=== PATIENT | male | born 1985 | race Caucasian/White ===

== ENCOUNTER 2019-08-18 13:59 | Observation (INO) | payer BC, OTHER ==
[2019-08-18 15:10] LABS: Absolute Lymphocytes (CBC) 0.7 K/uL (0.7-4.9); Basophils % 0.9 % (0-1.3); Lymphocytes % 20.7 % (15.3-44.8); MPV 6.5 fL (7.6-11.3); RBC Red Blood Cell Count 4.42 M/uL (4.33-5.43)
[2019-08-18] MEDS ORDERED: NA CHLORIDE 0.9% 1,000 ML ONE ×2 (15:13→17:57)
[2019-08-18 15:24] LABS: Protime INR 0.88
[2019-08-18 15:31] LABS: ALT/SGPT 96 U/L (12-78); AST/SGOT 111 U/L (15-37); Albumin 3.6 g/dL (3.4-5.0); Alkaline Phosphatase 97 U/L (45-117); BUN Blood Urea Nitrogen 9 mg/dL (7-18); Bicarbonate 29 mmol/L (21-32); Bilirubin Direct 0.1 mg/dL (0-0.2); Bilirubin Total 0.2 mg/dL (0.2-1.0); Glucose Level 113 mg/dL (74-106); Potassium 3.7 mmol/L (3.5-5.1); Protein, Total 7.2 g/dL (6.4-8.2); Sodium Level 141 mmol/L (136-145)
[2019-08-18] MEDS ORDERED: MIDAZOLAM HCL 2 MG/2 ML INJ ONE (15:32)
[2019-08-18] MEDS ORDERED: KETAMINE HCL 500 MG/5 ML VIAL ONE (15:51)
--- NOTE | 2019-08-18 16:52 | EDPHYS ---
Physician Documentation [facility] Name: Alonzo Hernandez Age: 34 yrs Sex: Male : 1985 Arrival Date: 08/18/2019 Time: 14:06 Bed 3 Private MD: ED Physician Mikey Palacios HPI: 08/17 19:16 This 34 yrs old Male presents to ER via EMS with complaints of Syncope, kdr Alcohol Abuse. 19:17 The patient presents with agitation, confusion, decreased mental status, decreased kdr responsiveness. Onset: The symptoms/episode began/occurred at an unknown time. Possible causes: drug use, alcohol, head injury. Associated signs and symptoms: Pertinent positives: combativeness, confusion. Current symptoms: In the emergency department the patient's symptoms are unchanged from the initial presentation. Patient's baseline: Neuro: alert and fully oriented, Motor: no deficits, Ambulation: walks without assistance, Speech: normal. EMS reports that the patient was found unresponsive in the front yard of his parents home. Historical: - Allergies: 14:00 Unable to obtain; rb1 - Home Meds: 14:00 Unable to obtain [Active]; rb1 - PMHx: 14:00 Unable to obtain; rb1 - PSHx: 14:00 Unable to obtain; rb1 - Immunization history:: Adult Immunizations unknown. ROS: 19:17 Constitutional: Unable to obstain as the patient is intermnittnetly unresponsive and kdr appears to be intoxicatead 19:17 Unable to obtain ROS due to altered mental status, obtunded state. Exam: 19:17 Constitutional: This is a well developed, well nourished patient who is awake, alert, kdr and in no acute distress. Head/Face: Normocephalic, atraumatic. Eyes: Pupils equal round and reactive to light, extra-ocular motions intact. Lids and lashes normal. Conjunctiva and sclera are non-icteric and not injected. Cornea within normal limits. Periorbital areas with no swelling, redness, or edema. Neck: Trachea midline, no thyromegaly or masses palpated, and no cervical lymphadenopathy. Supple, full range of motion without nuchal rigidity, or vertebral point tenderness. No Meningismus. Chest/axilla: Normal chest wall appearance and motion. Nontender with no deformity. No lesions are appreciated. Cardiovascular: Regular rate and rhythm with a normal S1 and S2. No gallops, murmurs, or rubs. Normal PMI, no JVD. No pulse deficits. Respiratory: Lungs have equal breath sounds bilaterally, clear to auscultation and percussion. No rales, rhonchi or wheezes noted. No increased work of breathing, no retractions or nasal flaring. Abdomen/GI: Soft, non-tender, with normal bowel sounds. No distension or tympany. No guarding or rebound. No evidence of tenderness throughout. Back: No spinal tenderness. No costovertebral tenderness. Full range of motion. Skin: Warm, dry with normal turgor. Normal color with no rashes, no lesions, and no evidence of cellulitis. MS/ Extremity: Pulses equal, no cyanosis. Neurovascular intact. Full, normal range of motion. 19:17 Neuro: Orientation: unable to test, The patient is unresponsive intermittently. When he wakes, he is agitated and uncooperative. Vital Signs: 14:00 BP 137 / 89; Pulse 108; Resp 14; Temp 98.5(TE); Pulse Ox 95% on 2 lpm NC; rb1 15:01 BP 129 / 82; Pulse 97; Resp 13; Pulse Ox 93% ; bp 16:00 BP 158 / 113; Pulse 117; Resp 15; Pulse Ox 96% ; bp 17:00 BP 161 / 112; Pulse 116; Resp 17; Pulse Ox 92% on 2 lpm NC; rb1 18:00 BP 168 / 116; Pulse 114; Resp 13; Pulse Ox 94% on 2 lpm NC; rb1 14:00 Nasal trumpet was inserted by EMS rb1 17:00 Pt. keeps fighting the O2 rb1 MDM: 16:51 Patient medically screened. kdr 19:17 Data reviewed: vital signs, nurses notes, lab test result(s), radiologic studies. kdr Counseling: I had a detailed discussion with the patient and/or guardian regarding: the historical points, exam findings, and any diagnostic results supporting the discharge/admit diagnosis, lab results, radiology results, the need for further work-up and treatment in the hospital. 08/17 14:56 Order name: Acetaminophen; Complete Time: 16:37 kdr 08/17 14:56 Order name: Basic Metabolic Panel; Complete Time: 16:37 kdr 08/17 14:56 Order name: CBC with Diff; Complete Time: 16:37 kdr 08/17 14:56 Order name: ETOH Level; Complete Time: 16:37 kdr 08/17 14:56 Order name: Hepatic Function; Complete Time: 16:37 kdr 08/17 14:56 Order name: PT-INR; Complete Time: 16:37 kdr 08/17 14:56 Order name: Ptt, Activated; Complete Time: 16:37 kdr 08/17 14:56 Order name: Salicylate; Complete Time: 16:37 kdr 08/17 14:56 Order name: Urine Drug Screen; Complete Time: 19:22 kdr 08/17 16:51 Order name: CT Head Brain wo Cont kdr 08/17 18:01 Order name: Urine Dipstick--Ancillary (enter results) em1 08/18 05:53 Order name: CBC with Automated Diff EDMS 08/18 06:26 Order name: Lactate EDMS 08/18 06:26 Order name: Alcohol Serum/Plasma EDMS 08/17 14:56 Order name: EKG; Complete Time: 14:57 [facility] 08/17 14:56 Order name: EKG - Nurse/Tech; Complete Time: 15:03 kdr 08/17 14:56 Order name: IV Saline Lock; Complete Time: 14:58 kdr 08/17 14:56 Order name: Labs collected and sent; Complete Time: 14:58 [facility] 08/17 14:56 Order name: Urine Dipstick-Ancillary (obtain specimen); Complete Time: 17:57 [facility] 08/17 15:31 Order name: Restraint:Violent/Self Destructive (Adult:18yo or >); Complete Time: 15:31 bp 04 17:13 Order name: Social Service Consult EDMS 08/17 17:35 Order name: CT; Complete Time: 19:22 EDMS Administered Medications: 15:02 Drug: NS 0.9% 1000 ml Route: IV; Rate: 1 bolus; Site: right forearm; bp 15:15 Drug: Versed 4 mg Route: IVP; Site: right forearm; bp 15:45 Drug: Ketamine 50 mg Route: IM; Site: left vastus lateralis; bp 15:50 Drug: Ketamine 100 mg Route: IM; Site: left vastus lateralis; bp 16:30 Drug: Ketamine 150 mg Route: IM; Site: right vastus lateralis; bp 16:30 Drug: Ketamine 150 mg Route: IM; Site: left vastus lateralis; bp 16:55 CANCELLED (Duplicate Order): Ketamine 3 mg/kg IM once; Total of 150 mg IM bp Disposition: 08/18/19 16:51 Hospitalization ordered by Finn Shaikh for Inpatient Admission. Preliminary diagnosis is Alcohol Intoxidation. - Bed requested for [facility] ER HOLD. - Status is Inpatient Admission. ph - Condition is Serious. - Problem is an acute exacerbation. - Symptoms are unchanged. Signatures: Dispatcher [employer] EDMS Mikey Palacios MD MD [facility] Radha Wiggins RN RN aa5 Merna Payne RN RN ph Isabel Talavera, RN RN rb1 Derick Mariee RN RN bp Corrections: (The following items were deleted from the chart) 16:55 16:52 Ketamine 3 mg/kg IM once; Total of 150 mg IM ordered. kdr bp 19:11 16:51 Hospitalization Ordered by Finn Shaikh DO for Inpatient Admission. Preliminary aa5 diagnosis is Alcohol Intoxidation. Bed requested for Intensive Care Unit. Status is Inpatient Admission. Condition is Serious. Problem is an acute exacerbation. Symptoms are unchanged. kdr 08/18 07:19 [id number] 19:11 08/18/2019 16:51 Hospitalization Ordered by Finn Shaikh DO for Inpatient ph Admission. Preliminary diagnosis is Alcohol Intoxidation. Bed requested for [facility] ER HOLD. Status is Inpatient Admission. Condition is Serious. Problem is an acute exacerbation. Symptoms are unchanged. aa5
--- NOTE | 2019-08-18 16:52 | ER ---
Nurse's Notes [facility] Name: Alonzo Hernandez Age: 34 yrs Sex: Male : 1985 Arrival Date: 08/18/2019 Time: 14:06 Bed 3 Private MD: Diagnosis: Alcohol Intoxidation Presentation: 08/17 14:00 Chief complaint: EMS states: Pt is 34 yr. old, Neighbors called and reported that the rb1 pt was passed out in his yard. Family reports that the pt. abuses alcohol. When EMS arrived the pt. walked with them to the ambulance and became uncooperative and combative. They administered Versed 5 mg IM x once. HR 130's and BP 170/110. Pt. denies using drugs and admits to drinking alcohol but the amount is unknown. No medical history per family report. Coronavirus screen: Proceed with normal triage. Initial Sepsis Screen: Does the patient meet any 2 criteria? No. Patient's initial sepsis screen is negative. Does the patient have a suspected source of infection? No. Patient's initial sepsis screen is negative. Risk Assessment: Do you want to hurt yourself or someone else? Unable to obtain. Onset of symptoms is unknown. 14:00 Method Of Arrival: EMS: [facility] rb1 14:00 Acuity: NAYLA 3 rb1 Triage Assessment: 14:00 General: Appears in no apparent distress. Behavior is drowsy, Received Versed 5 mg IM x rb1 once by EMS in route to the hospital. Pain: Unable to use pain scale. Drowsy from the Versed. Neuro: Level of Consciousness is lethargic. Cardiovascular: Capillary refill < 3 seconds. Respiratory: Airway via nasal trumpet Respiratory effort is even, unlabored, Respiratory pattern is regular, symmetrical. Derm: Skin is pink, warm \T\ dry. Historical: - Allergies: 14:00 Unable to obtain; rb1 - Home Meds: 14:00 Unable to obtain [Active]; rb1 - PMHx: 14:00 Unable to obtain; rb1 - PSHx: 14:00 Unable to obtain; rb1 - Immunization history:: Adult Immunizations unknown. Screenin:00 Abuse screen: Denies threats or abuse. Nutritional screening: No deficits noted. rb1 Tuberculosis screening: No symptoms or risk factors identified. Fall Risk Fall in past 12 months (25 points). No secondary diagnosis (0 pts). No IV (0 pts). Ambulatory Aid- None/Bed Rest/Nurse Assist (0 pts). Gait- Normal/Bed Rest/Wheelchair (0 pts) Mental Status- Overestimates/Forgets Limitations (15 pts.). Assessment: 14:00 General: Appears in no apparent distress. comfortable, unkempt. General: Behavior is bp drowsy, uncooperative, Smells of alcohol. Pain: Unable to use pain scale. Does not appear to understand pain scale. Neuro: Level of Consciousness is lethargic, Oriented to none. Cardiovascular: Rhythm is sinus tachycardia. Respiratory: No deficits noted. GI: No signs and/or symptoms were reported involving the gastrointestinal system. : No signs and/or symptoms were reported regarding the genitourinary system. EENT: No deficits noted. Derm: No deficits noted. Musculoskeletal: No deficits noted. 15:00 Reassessment: PT REMAINS DISORIENTED AND UNCOOPERATIVE WHEN STIMULATED, LETHARGIC WHEN bp LEFT TO REST. ST ON MONITOR. 15:15 Reassessment: PT UNCOOPERATIVE AND COMBATIVE, ATTEMPTING TO D/C MONITORING, FIGHTING TO bp REMOVE RESTRAINTS. 16:13 Reassessment: LUZMA ROBERTSON CALLED. PT D/C RESTRAINTS, MONITOR AND PIV. ATTENDING AND STAFF bp AT B/S, PT PLACED BACK IN BED, RESTRAINTS RE-APPLIED. PT NOT ABLE TO VERBALIZE RESTRAINT RELEASE CRITERIA, CONTINUES TO BE UNCOOPERATIVE AND COMBATIVE. 18:00 Reassessment: PT SEEN BY DR RODRIGUEZ. PT REMAINS UNCOOPERATIVE AND COMBATIVE. bp Vital Signs: 14:00 BP 137 / 89; Pulse 108; Resp 14; Temp 98.5(TE); Pulse Ox 95% on 2 lpm NC; rb1 15:01 BP 129 / 82; Pulse 97; Resp 13; Pulse Ox 93% ; bp 16:00 BP 158 / 113; Pulse 117; Resp 15; Pulse Ox 96% ; bp 17:00 BP 161 / 112; Pulse 116; Resp 17; Pulse Ox 92% on 2 lpm NC; rb1 18:00 BP 168 / 116; Pulse 114; Resp 13; Pulse Ox 94% on 2 lpm NC; rb1 14:00 Nasal trumpet was inserted by EMS rb1 17:00 Pt. keeps fighting the O2 rb1 ED Course: 14:00 Arm band placed on right wrist. rb1 14:00 Patient has correct armband on for positive identification. Bed in low position. Call rb1 light in reach. Side rails up X 1. hall monitor on. Pulse ox on. NIBP on. Warm blanket given. 14:00 Maintain EMS IV. Dressing intact. Good blood return noted. Site clean \T\ dry. Gauge \T\ bp site: 20 GAUGE R FA. 14:06 Patient arrived in ED. em1 14:19 Triage completed. rb1 14:21 Derick Mariee, VIKAS is Primary Nurse. bp 14:45 Mikey Palacios MD is Attending Physician. kdr 14:59 Initial lab(s) drawn, by me, sent to lab. mh5 15:02 Acetaminophen Sent. mh5 15:02 Basic Metabolic Panel Sent. mh5 15:03 CBC with Diff Sent. mh5 15:03 ETOH Level Sent. mh5 15:03 Hepatic Function Sent. mh5 15:03 PT-INR Sent. mh5 15:03 Ptt, Activated Sent. mh5 15:03 Salicylate Sent. mh5 15:24 EKG done, by ED staff, reviewed by Mikey Palacios MD. mh5 16:47 Missed attempt(s): 18 gauge in right antecubital area. mh5 16:49 Finn Rodriguez DO is Hospitalizing Provider. kdr 17:17 Inserted saline lock: 20 gauge in left forearm, using aseptic technique. mh5 17:56 Urine collected: straight cath specimen, clear. Straight cath inserted, using sterile mh5 technique, 16 Fr. Returned clear yellow urine. Patient tolerated well. 17:57 Urine Drug Screen Sent. mh5 19:11 No provider procedures requiring assistance completed. Patient admitted, IV remains in bp place. Restraints: 14:00 Violent/Self Destructive Restraint: Order: obtained. Initiated August 18, 2019 at 14:00 bp Staff present during the Initiation of Restraint: DINORA PCT, PETER PCT, WAYNE LOWRY, RHONDA RN, KAVITA RN. Family Notification/Education: Unable to provide education: PT CONFUSED. Observed actions/behavior: destructive, violent, severely aggressive, confusion/disorientation, difficulty remembering or follow instructions, impaired decision making, repeated attempts to get up from bed/chair without assistance. decreased Level of Consciousness (LOC), unable to follow instructions, rptd attempts to remove/tamper lines/tubes/IV/med devices \T\ wnd dressing, Less restrictive alternatives attempted: decreased environmental stimuli, 1:1 patient care, placed near Nurse station, reoriented to location, medications evaluated, medicated for pain/anxiety, Alternative interventions: Ineffective. Clinical justification for use: Violent/self destructing behavior impacts therapeutic environment. Poses a serious danger to physical safety of self \T\ others. Monitoring: Mental status: agitated/restless, Cognition: poor judgement, poor safety awareness, Impulsive, poor attention/concentration, unable to follow commands, Circulation: Within defined parameters (based on Cardiovascular assessment). Skin integrity: Within defined parameters (based on Integumentary assessment) No injuries due to Restraints noted. Range of Motion: declined. Hydration/Food: patient declined. Elimination/Hygiene: Patient declined. Restraint status: Soft wrist restraint (Right) Started. Soft wrist restraint (Left) Started. Soft ankle restraint (Right) Started. Soft ankle restraint (Left) Started. Readiness for Discontinue: Criteria not met. Patient still violent/self destructive and Alternative interventions still ineffective. Restraint continued. Face to Face Evaluatn: Immediate Situation: PT INTOXICATED WITH H/O ETOH ABUSE, COMBATIVE WITH FAMILY AND EMS ON SCENE. PT REMAINS BELLIGERENT, UNCOOPERATIVE AND COMBATIVE. PT NOT RESPONDING TO VERBAL REDIRECTION Response of Patient to Restraint: PT REMAINS UNCOOPERATIVE/COMBATIVE Medical \T\ Behavioral condition: INTOXICATED WITH H/O ETOH ABUSE Continue Restraint. MD Notified of Evaluation result: Mikey Palacios MD. 14:15 Violent/Self Destructive Restraint: Observed actions/behavior: destructive, violent, bp severely aggressive, confusion/disorientation, difficulty remembering or follow instructions, impaired decision making, repeated attempts to get up from bed/chair without assistance. decreased Level of Consciousness (LOC), unable to follow instructions, rptd attempts to remove/tamper lines/tubes/IV/med devices \T\ wnd dressing, Less restrictive alternatives attempted: decreased environmental stimuli, 1:1 patient care, placed near Nurse station, reoriented to location, medications evaluated, medicated for pain/anxiety, Alternative interventions: Ineffective. Clinical justification for use: Violent/self destructing behavior impacts therapeutic environment. Poses a serious danger to physical safety of self \T\ others. Monitoring: Mental status: agitated/restless, confused. Cognition: poor judgement, poor safety awareness, Impulsive, poor attention/concentration, unable to follow commands, Circulation: Within defined parameters (based on Cardiovascular assessment). Skin integrity: Within defined parameters (based on Integumentary assessment) No injuries due to Restraints noted. Restraint status: Soft wrist restraint (Right) Continued. Soft wrist restraint (Left) Continued. Soft ankle restraint (Right) Continued. Soft ankle restraint (Left) Continued. Readiness for Discontinue: Criteria not met. Patient still violent/self destructive and Alternative interventions still ineffective. Restraint continued. 14:30 Violent/Self Destructive Restraint: Observed actions/behavior: destructive, violent, bp severely aggressive, confusion/disorientation, difficulty remembering or follow instructions, impaired decision making, repeated attempts to get up from bed/chair without assistance. decreased Level of Consciousness (LOC), unable to follow instructions, rptd attempts to remove/tamper lines/tubes/IV/med devices \T\ wnd dressing, Less restrictive alternatives attempted: decreased environmental stimuli, 1:1 patient care, placed near Nurse station, reoriented to location, medications evaluated, medicated for pain/anxiety, Alternative interventions: Ineffective. Clinical justification for use: Violent/self destructing behavior impacts therapeutic environment. Poses a serious danger to physical safety of self \T\ others. Monitoring: Mental status: agitated/restless, confused. Cognition: poor judgement, poor safety awareness, Impulsive, poor attention/concentration, unable to follow commands, Circulation: Within defined parameters (based on Cardiovascular assessment). Skin integrity: Within defined parameters (based on Integumentary assessment) Restraint status: Soft wrist restraint (Right) Continued. Soft wrist restraint (Left) Continued. Soft ankle restraint (Right) Continued. Soft ankle restraint (Left) Continued. Readiness for Discontinue: Criteria not met. Patient still violent/self destructive and Alternative interventions still ineffective. Restraint continued. 14:45 Violent/Self Destructive Restraint: Observed actions/behavior: destructive, violent, bp severely aggressive, confusion/disorientation, difficulty remembering or follow instructions, impaired decision making, repeated attempts to get up from bed/chair without assistance. decreased Level of Consciousness (LOC), unable to follow instructions, rptd attempts to remove/tamper lines/tubes/IV/med devices \T\ wnd dressing, Less restrictive alternatives attempted: decreased environmental stimuli, 1:1 patient care, placed near Nurse station, reoriented to location, medications evaluated, medicated for pain/anxiety, Alternative interventions: Ineffective. Clinical justification for use: Violent/self destructing behavior impacts therapeutic environment. Poses a serious danger to physical safety of self \T\ others. Monitoring: Mental status: agitated/restless, confused. Cognition: poor judgement, poor safety awareness, Impulsive, poor attention/concentration, unable to follow commands, Circulation: Within defined parameters (based on Cardiovascular assessment). Skin integrity: Within defined parameters (based on Integumentary assessment) No injuries due to Restraints noted. Restraint status: Soft wrist restraint (Right) Continued. Soft wrist restraint (Left) Continued. Soft ankle restraint (Right) Continued. Soft ankle restraint (Left) Continued. Readiness for Discontinue: Criteria not met. Patient still violent/self destructive and Alternative interventions still ineffective. Restraint continued. 15:00 Violent/Self Destructive Restraint: Observed actions/behavior: destructive, violent, bp severely aggressive, confusion/disorientation, difficulty remembering or follow instructions, impaired decision making, repeated attempts to get up from bed/chair without assistance. decreased Level of Consciousness (LOC), unable to follow instructions, rptd attempts to remove/tamper lines/tubes/IV/med devices \T\ wnd dressing, Less restrictive alternatives attempted: decreased environmental stimuli, 1:1 patient care, placed near Nurse station, reoriented to location, medications evaluated, medicated for pain/anxiety, Alternative interventions: Ineffective. Clinical justification for use: Violent/self destructing behavior impacts therapeutic environment. Poses a serious danger to physical safety of self \T\ others. Monitoring: Mental status: agitated/restless, confused. Cognition: poor judgement, poor safety awareness, Impulsive, poor attention/concentration, unable to follow commands, Circulation: Within defined parameters (based on Cardiovascular assessment). Skin integrity: Within defined parameters (based on Integumentary assessment) No injuries due to Restraints noted. Range of Motion: declined. Hydration/Food: patient declined. Elimination/Hygiene: Patient declined. Restraint status: Soft wrist restraint (Right) Continued. Soft wrist restraint (Left) Continued. Soft ankle restraint (Right) Continued. Soft ankle restraint (Left) Continued. Readiness for Discontinue: Criteria not met. Patient still violent/self destructive and Alternative interventions still ineffective. Restraint continued. 15:15 Violent/Self Destructive Restraint: Observed actions/behavior: destructive, violent, bp severely aggressive, confusion/disorientation, difficulty remembering or follow instructions, impaired decision making, repeated attempts to get up from bed/chair without assistance. decreased Level of Consciousness (LOC), unable to follow instructions, rptd attempts to remove/tamper lines/tubes/IV/med devices \T\ wnd dressing, Less restrictive alternatives attempted: decreased environmental stimuli, 1:1 patient care, placed near Nurse station, reoriented to location, medications evaluated, medicated for pain/anxiety, Alternative interventions: Ineffective. Clinical justification for use: Violent/self destructing behavior impacts therapeutic environment. Poses a serious danger to physical safety of self \T\ others. Monitoring: Mental status: agitated/restless, confused. Cognition: poor judgement, poor safety awareness, Impulsive, poor attention/concentration, unable to follow commands, Circulation: Within defined parameters (based on Cardiovascular assessment). Skin integrity: Within defined parameters (based on Integumentary assessment) No injuries due to Restraints noted. Restraint status: Soft wrist restraint (Right) Continued. Soft wrist restraint (Left) Continued. Soft ankle restraint (Right) Continued. Soft ankle restraint (Left) Continued. Readiness for Discontinue: Criteria not met. Patient still violent/self destructive and Alternative interventions still ineffective. Restraint continued. 15:30 Violent/Self Destructive Restraint: Observed actions/behavior: destructive, violent, bp severely aggressive, confusion/disorientation, difficulty remembering or follow instructions, impaired decision making, repeated attempts to get up from bed/chair without assistance. decreased Level of Consciousness (LOC), unable to follow instructions, rptd attempts to remove/tamper lines/tubes/IV/med devices \T\ wnd dressing, Less restrictive alternatives attempted: decreased environmental stimuli, 1:1 patient care, placed near Nurse station, reoriented to location, medications evaluated, medicated for pain/anxiety, Alternative interventions: Ineffective. Clinical justification for use: Violent/self destructing behavior impacts therapeutic environment. Poses a serious danger to physical safety of self \T\ others. Monitoring: Mental status: agitated/restless, confused. Cognition: poor judgement, poor safety awareness, Impulsive, poor attention/concentration, unable to follow commands, Circulation: Within defined parameters (based on Cardiovascular assessment). Skin integrity: Within defined parameters (based on Integumentary assessment) No injuries due to Restraints noted. Restraint status: Soft wrist restraint (Right) Continued. Soft wrist restraint (Left) Continued. Soft ankle restraint (Right) Continued. Soft ankle restraint (Left) Continued. Readiness for Discontinue: Criteria not met. Patient still violent/self destructive and Alternative interventions still ineffective. Restraint continued. 15:45 Violent/Self Destructive Restraint: Observed actions/behavior: destructive, violent, bp severely aggressive, confusion/disorientation, difficulty remembering or follow instructions, impaired decision making, repeated attempts to get up from bed/chair without assistance. decreased Level of Consciousness (LOC), unable to follow instructions, rptd attempts to remove/tamper lines/tubes/IV/med devices \T\ wnd dressing, Less restrictive alternatives attempted: decreased environmental stimuli, 1:1 patient care, placed near Nurse station, reoriented to location, medications evaluated, medicated for pain/anxiety, Alternative interventions: Ineffective. Clinical justification for use: Violent/self destructing behavior impacts therapeutic environment. Poses a serious danger to physical safety of self \T\ others. Monitoring: Mental status: agitated/restless, confused. Cognition: poor judgement, poor safety awareness, Impulsive, poor attention/concentration, unable to follow commands, Circulation: Within defined parameters (based on Cardiovascular assessment). Skin integrity: Within defined parameters (based on Integumentary assessment) No injuries due to Restraints noted. Restraint status: Soft wrist restraint (Right) Continued. Soft wrist restraint (Left) Continued. Soft ankle restraint (Right) Continued. Soft ankle restraint (Left) Continued. Readiness for Discontinue: Criteria not met. Patient still violent/self destructive and Alternative interventions still ineffective. Restraint continued. 16:00 Violent/Self Destructive Restraint: Observed actions/behavior: destructive, violent, bp severely aggressive, confusion/disorientation, difficulty remembering or follow instructions, impaired decision making, repeated attempts to get up from bed/chair without assistance. decreased Level of Consciousness (LOC), unable to follow instructions, rptd attempts to remove/tamper lines/tubes/IV/med devices \T\ wnd dressing, Less restrictive alternatives attempted: decreased environmental stimuli, 1:1 patient care, placed near Nurse station, reoriented to location, medications evaluated, medicated for pain/anxiety, Alternative interventions: Ineffective. Clinical justification for use: Violent/self destructing behavior impacts therapeutic environment. Poses a serious danger to physical safety of self \T\ others. Monitoring: Mental status: agitated/restless, confused. Cognition: poor judgement, poor safety awareness, Impulsive, poor attention/concentration, unable to follow commands, Circulation: Within defined parameters (based on Cardiovascular assessment). Skin integrity: Within defined parameters (based on Integumentary assessment) No injuries due to Restraints noted. Restraint status: Soft wrist restraint (Right) Continued. Soft wrist restraint (Left) Continued. Soft ankle restraint (Right) Continued. Soft ankle restraint (Left) Continued. Readiness for Discontinue: Criteria not met. Patient still violent/self destructive and Alternative interventions still ineffective. Restraint continued. 16:15 Violent/Self Destructive Restraint: Observed actions/behavior: destructive, violent, bp severely aggressive, confusion/disorientation, difficulty remembering or follow instructions, impaired decision making, repeated attempts to get up from bed/chair without assistance. decreased Level of Consciousness (LOC), unable to follow instructions, rptd attempts to remove/tamper lines/tubes/IV/med devices \T\ wnd dressing, Less restrictive alternatives attempted: decreased environmental stimuli, 1:1 patient care, placed near Nurse station, reoriented to location, medications evaluated, medicated for pain/anxiety, Alternative interventions: Ineffective. Clinical justification for use: Violent/self destructing behavior impacts therapeutic environment. Poses a serious danger to physical safety of self \T\ others. Monitoring: Mental status: agitated/restless, confused. Cognition: poor judgement, poor safety awareness, Impulsive, poor attention/concentration, unable to follow commands, Circulation: Within defined parameters (based on Cardiovascular assessment). Skin integrity: Within defined parameters (based on Integumentary assessment) No injuries due to Restraints noted. Restraint status: Soft wrist restraint (Right) Continued. Soft wrist restraint (Left) Continued. Soft ankle restraint (Right) Continued. Soft ankle restraint (Left) Continued. Readiness for Discontinue: Criteria not met. Patient still violent/self destructive and Alternative interventions still ineffective. Restraint continued. 16:30 Violent/Self Destructive Restraint: Observed actions/behavior: destructive, violent, bp severely aggressive, confusion/disorientation, difficulty remembering or follow instructions, impaired decision making, repeated attempts to get up from bed/chair without assistance. decreased Level of Consciousness (LOC), unable to follow instructions, rptd attempts to remove/tamper lines/tubes/IV/med devices \T\ wnd dressing, Less restrictive alternatives attempted: decreased environmental stimuli, 1:1 patient care, placed near Nurse station, reoriented to location, medications evaluated, medicated for pain/anxiety, Alternative interventions: Ineffective. Clinical justification for use: Violent/self destructing behavior impacts therapeutic environment. Poses a serious danger to physical safety of self \T\ others. Monitoring: Mental status: agitated/restless, confused. Cognition: poor judgement, poor safety awareness, Impulsive, poor attention/concentration, unable to follow commands, Circulation: Within defined parameters (based on Cardiovascular assessment). Skin integrity: Within defined parameters (based on Integumentary assessment) No injuries due to Restraints noted. Restraint status: Soft wrist restraint (Right) Continued. Soft wrist restraint (Left) Continued. Soft ankle restraint (Right) Continued. Soft ankle restraint (Left) Continued. Readiness for Discontinue: Criteria not met. Patient still violent/self destructive and Alternative interventions still ineffective. Restraint continued. 16:45 Violent/Self Destructive Restraint: Observed actions/behavior: destructive, violent, bp severely aggressive, confusion/disorientation, difficulty remembering or follow instructions, impaired decision making, repeated attempts to get up from bed/chair without assistance. decreased Level of Consciousness (LOC), unable to follow instructions, rptd attempts to remove/tamper lines/tubes/IV/med devices \T\ wnd dressing, Less restrictive alternatives attempted: decreased environmental stimuli, 1:1 patient care, placed near Nurse station, reoriented to location, medications evaluated, medicated for pain/anxiety, Alternative interventions: Ineffective. Clinical justification for use: Violent/self destructing behavior impacts therapeutic environment. Poses a serious danger to physical safety of self \T\ others. Monitoring: Mental status: agitated/restless, confused. Cognition: poor judgement, poor safety awareness, Impulsive, poor attention/concentration, unable to follow commands, Circulation: Within defined parameters (based on Cardiovascular assessment). Skin integrity: Within defined parameters (based on Integumentary assessment) No injuries due to Restraints noted. Restraint status: Soft wrist restraint (Right) Continued. Soft wrist restraint (Left) Continued. Soft ankle restraint (Right) Continued. Soft ankle restraint (Left) Continued. Readiness for Discontinue: Criteria not met. Patient still violent/self destructive and Alternative interventions still ineffective. Restraint continued. 17:00 Violent/Self Destructive Restraint: Observed actions/behavior: destructive, violent, bp severely aggressive, confusion/disorientation, difficulty remembering or follow instructions, impaired decision making, repeated attempts to get up from bed/chair without assistance. decreased Level of Consciousness (LOC), unable to follow instructions, rptd attempts to remove/tamper lines/tubes/IV/med devices \T\ wnd dressing, Less restrictive alternatives attempted: decreased environmental stimuli, 1:1 patient care, placed near Nurse station, reoriented to location, medications evaluated, medicated for pain/anxiety, Alternative interventions: Ineffective. Clinical justification for use: Violent/self destructing behavior impacts therapeutic environment. Poses a serious danger to physical safety of self \T\ others. Monitoring: Mental status: agitated/restless, confused. Cognition: poor judgement, poor safety awareness, Impulsive, poor attention/concentration, unable to follow commands, Circulation: Within defined parameters (based on Cardiovascular assessment). Skin integrity: Within defined parameters (based on Integumentary assessment) No injuries due to Restraints noted. Range of Motion: declined. Hydration/Food: patient declined. Elimination/Hygiene: Patient declined. Restraint status: Soft wrist restraint (Right) Continued. Soft wrist restraint (Left) Continued. Soft ankle restraint (Right) Continued. Soft ankle restraint (Left) Continued. Readiness for Discontinue: Criteria not met. Patient still violent/self destructive and Alternative interventions still ineffective. Restraint continued. Administered Medications: 15:02 Drug: NS 0.9% 1000 ml Route: IV; Rate: 1 bolus; Site: right forearm; bp 15:15 Drug: Versed 4 mg Route: IVP; Site: right forearm; bp 15:45 Drug: Ketamine 50 mg Route: IM; Site: left vastus lateralis; bp 15:50 Drug: Ketamine 100 mg Route: IM; Site: left vastus lateralis; bp 16:30 Drug: Ketamine 150 mg Route: IM; Site: right vastus lateralis; bp 16:30 Drug: Ketamine 150 mg Route: IM; Site: left vastus lateralis; bp 16:55 CANCELLED (Duplicate Order): Ketamine 3 mg/kg IM once; Total of 150 mg IM bp Outcome: 16:51 Decision to Hospitalize by Provider. kdr 19:00 Admitted to ER Hold. Please see [facility] for further documentation. rr5 19:00 Condition: stable rr5 19:00 Instructed on the need for admit. 08/18 07:19 Patient left the ED. ph Signatures: Mikey Palacios MD MD kdr Martinez, Eric em1 Merna Payne RN RN ph Isabel Talavera, RN RN rb1 Demond, Colleen 5 Derick Mariee, RN RN bp Victorino Yu, RN RN rr5
--- NOTE | 2019-08-18 17:12 | P.HP ---
Certification for Inpatient Patient admitted to: Inpatient With expected LOS: >2 Midnights Patient will require the following post-hospital care: Other (Possible psychiatric evaluation) Practitioner: I am a practitioner with admitting privileges, knowledge of patient current condition, hospital course, and medical plan of care. Services: Services provided to patient in accordance with Admission requirements found in Title 42 Section 412.3 of the Code of Federal Regulations Patient History Date of Service: 08/18/19 Primary Care Provider: Unknown Reason for admission: Alcohol intoxication History of Present Illness: 34-year-old male presented to the emergency room by EMS. Very little information could be obtained. Patient currently in restraints. ER reports patient was brought in by EMS after family noted that he was binge drinking alcohol. The patient has been very agitated. Patient has required medication for sedation. Patient has been in restraints to protect nurses and patient. I was asked to admit the patient due to alcohol intoxication. Alcohol level 503. AST ALT were elevated. CBC unremarkable. BMP unremarkable. CT scan head pending. Urine drug screen pending at this time. When I saw the patient ER, patient was restrained. Home medications list reviewed: No - Past Medical/Surgical History Past Medical History: Unable to obtain Past Surgical History: Unable to obtain Psychosocial/ Personal History: Unknown. Nurses report patient was brought in by EMS after family noted alcohol intake - Family History Family History: Reviewed- Non-Contributory - Social History Smoking Status: Unknown if ever smoked Alcohol use: Yes Place of Residence: Home Review of Systems is unable to be obtained Physical Examination - Physical Exam General: Alert, Disheveled, Other (Patient currently in restraints. Patient has been given medication for sedation. Patient stable at this time.) Neck: Supple Respiratory: Other (Patient breathing appropriately. No deficits noted.) Cardiovascular: Other (Telemetry unremarkable) Gastrointestinal: No guarding Musculoskeletal: Other (Patient does not appear in any pain) Integumentary: Other (Patient is disheveled and not well kept.) Neurological: Other (Alcohol intoxication noted) - Studies Laboratory Data (last 24 hrs) 08/18/19 15:00: PT 10.4, INR 0.88, APTT 31.2 08/18/19 15:00: WBC 3.5 L, Hgb 13.4 L, Hct 40.0, Plt Count 112 L 08/18/19 15:00: Sodium 141, Potassium 3.7, BUN 9, Creatinine 0.75, Glucose 113 H, Total Bilirubin 0.2, AST 111 H, ALT 96 H, Alkaline Phosphatase 97 Assessment and Plan - Plan Impression: Altered mental status secondary to alcohol intoxication with alcohol abuse Elevated liver function related to alcohol abuse Suspect underlying drug use Plan: Patient will be admitted to ICU. Will continue with alcohol withdrawal protocol. Will provide Ativan in different increments to keep from being severely agitated. Patient currently in restraints to keep from hurting nurses and himself. Will provide IV fluids-banana bag. Will follow closely. Await CT head and urine drug screen. Will continue 1 on 1 sitter. Will continue with aggressive medication to keep with slight sedation. Will try to obtain more information from family. Discharge Plan: Home Plan to discharge in: 48 Hours - Advance Directives Does patient have a Living Will: No Does patient have a Durable POA for Healthcare: No - Code Status/Comfort Care Code Status Assessed: No (Not able to be obtained) Time Spent Managing Pts Care (In Minutes): 55
--- NOTE | 2019-08-18 17:29 | RAD REPORT ---
EXAM DESCRIPTION: CT - Head Brain Wo Cont - 08/18/2019 5:23 pm CLINICAL HISTORY: AMS COMPARISON: No comparisons TECHNIQUE: Axial 5 mm thick images of the head were obtained without IV contrast. All CT scans are performed using dose optimization technique as appropriate and may include automated exposure control or mA/KV adjustment according to patient size. FINDINGS: No intracranial hemorrhage, mass, edema or shift of mid-line structures. No acute infarcti on changes seen. No abnormal extra-axial fluid collections. Ventricles are normal. Mastoid air cells are clear. Ethmoid and sphenoid sinus opacification present. No air-fluid levels. M inimal mucosal thickening in the maxillary sinuses. No acute bony findings. IMPRESSION: Negative noncontrast CT head for acute finding. Paranasal sinus disease unrelated to the current event.
[2019-08-18] MEDS ORDERED: LORazepam 2 MG/ML VIAL ONE ×4 (17:57→21:11)
[2019-08-18] MEDS: LORazepam 2 MG/ML VIAL IV PRN ×2 (18:00→18:15)
[2019-08-18] MEDS ORDERED: FLUMAZENIL 0.1 MG/ML (5 mL VIAL) IV PRN (18:02)
[2019-08-18] MEDS ORDERED: LORazepam 2 MG/ML VIAL IV PRN (18:02)
[2019-08-18] MEDS: LORazepam 2 MG/ML VIAL IV SCH ×2 (18:02→22:55)
[2019-08-18] MEDS ORDERED: ONDANSETRON 4 MG/2 ML VIAL IV PRN (18:02)
[2019-08-18] MEDS ORDERED: HALOPERIDOL LACT 5 MG/ML INJ IM PRN (18:02)
[2019-08-18 18:14] LABS: Barbiturates NEGATIVE (NEGATIVE); Benzodiazepines POSITIVE (NEGATIVE); Cocaine NEGATIVE (NEGATIVE); METHAMPHETAM NEGATIVE (NEGATIVE); Methadone NEGATIVE (NEGATIVE); Opiates NEGATIVE (NEGATIVE); Phencyclidine NEGATIVE (NEGATIVE); THC Cannibis NEGATIVE (NEGATIVE)
[2019-08-18] MEDS ORDERED: ENOXAPARIN 40 MG/0.4 ML SQ SCH (19:00)
[2019-08-18] MEDS ORDERED: FOLIC ACID 1 MG, MULTIVITAMINS INJ 10 ML, THIAMINE HCL 100 MG in NA CHLORIDE 0.9% 1,000 ML IV SCH (19:00)
[2019-08-18] MEDS ORDERED: ENOXAPARIN 40 MG/0.4 ML SQ ONE (19:54)
[2019-08-18] MEDS ORDERED: KCL 20 MEQ/100 mL IVPB 20 MEQ/100 ML BAG IV ONE (19:54)
[2019-08-18] MEDS ORDERED: KCL 20 MEQ/100 mL IVPB 20 MEQ/100 ML BAG IV SCH (20:00)
[2019-08-18 23:53] VITALS: O2SAT 98
[2019-08-19] MEDS ORDERED: NA CHLORIDE 0.9% 500 ML IV ONE (00:46)
[2019-08-19] MEDS ORDERED: NA CHLORIDE 0.9% 1,000 ML IV SCH (01:00)
[2019-08-19] MEDS ORDERED: LORazepam 2 MG/ML VIAL ONE (01:08)
[2019-08-19] MEDS ORDERED: NA CHLORIDE 0.9% 1,000 ML ONE (01:08)
[2019-08-19] MEDS ORDERED: NA CHLORIDE 0.9% 500 ML ONE (01:09)
[2019-08-19] MEDS: LORazepam 2 MG/ML VIAL IV SCH ×2 (02:45→06:02)
[2019-08-19 03:00] VITALS: BMI 27.4
[2019-08-19 04:13] VITALS: TEMP 98.4
[2019-08-19 05:12] VITALS: BP 160/101
[2019-08-19 05:45] LABS: Absolute Lymphocytes (CBC) 0.8 K/uL (0.7-4.9); Basophils % 0.5 % (0-1.3); Hematocrit 37.6 % (39.6-49.0); Lymphocytes % 11.6 % (15.3-44.8); MPV 6.9 fL (7.6-11.3); RBC Red Blood Cell Count 4.22 M/uL (4.33-5.43)
--- NOTE | 2019-08-19 11:53 | EKG ---
Test Date: 2019-08-18 Test Time: 15:14:06 Lathe Hand: GEMMA MEASUREMENT RESULTS: Intervals: Rate: 127 CA: 122 QRSD: 82 QT: 328 QTc: 476 Ozone: P: 67 CA: 122 QRS: 78 T: 68 INTERPRETIVE STATEMENTS: Sinus tachycardia Otherwise normal ECG No previous ECG available for comparison Electronically Signed On 08-19-19 11:50:23 CDT by Brayan You
--- NOTE | 2019-08-20 05:21 | P.DS ---
Discharge Date: 08/19/19 Primary Care Provider: Unknown Discharge Condition: GOOD Reason for Admission: Alcohol intoxication Brief History of Present Illness: Patient is a 34-year-old gentleman who came in intoxicated. He was confused and combative. He was restrained in admitted to the hospital for further treatment. Hospital Course: Patient has done well during his hospital stay and is stable for discharge. Family will come and pick him up and he will go home with family this morning. He will need close outpatient follow with Psychiatry. Vital Signs/Physical Exam: Temp Pulse Resp BP Pulse Ox 98.4 F 94 H 18 160/101 H 94 08/19/19 05:00 08/19/19 05:00 08/19/19 05:00 08/19/19 05:00 08/19/19 05:00 General: Alert, In no apparent distress, Oriented x3 Laboratory Data at Discharge: WBC 7.1 K/uL (4.3-10.9) D 08/19/19 05:00 Hgb 13.0 g/dL (13.6-17.9) L 08/19/19 05:00 Hct 37.6 % (39.6-49.0) L 08/19/19 05:00 Plt Count 108 K/uL (152-406) L 08/19/19 05:00 PT 10.4 SECONDS (9.5-12.5) 08/18/19 15:00 INR 0.88 08/18/19 15:00 APTT 31.2 SECONDS (24.3-36.9) 08/18/19 15:00 Sodium Cancelled 08/19/19 05:25 Potassium Cancelled 08/19/19 05:25 BUN Cancelled 08/19/19 05:25 Creatinine Cancelled 08/19/19 05:25 Glucose Cancelled 08/19/19 05:25 Phosphorus Cancelled 08/19/19 05:25 Magnesium Cancelled 08/19/19 05:25 Total Bilirubin Cancelled 08/19/19 05:25 AST Cancelled 08/19/19 05:25 ALT Cancelled 08/19/19 05:25 Alkaline Phosphatase Cancelled 08/19/19 05:25 Triglycerides Cancelled 08/19/19 05:25 Cholesterol Cancelled 08/19/19 05:25 HDL Cholesterol Cancelled 08/19/19 05:25 Cholesterol/HDL Ratio Cancelled 08/19/19 05:25 Lipase Cancelled 08/19/19 05:25 Home Medications: Metoprolol Tartrate [Lopressor] 25 mg PO BID #60 tab 08/19/19 chlordiazePOXIDE HCl [Chlordiazepoxide HCl] 10 mg PO TID #40 capsule 08/19/19 New Medications: chlordiazePOXIDE HCl [Chlordiazepoxide HCl] 10 mg PO TID #40 capsule Metoprolol Tartrate [Lopressor] 25 mg PO BID #60 tab Patient Discharge Instructions: OK TO DC IV AND DC HOME. FOLLOW-UP WITH PRIMARY CARE PROVIDER IN 1-2 WEEKS. FOLLOW-UP WITH psychiatrist IN 1-2 WEEKS. RETURN TO THE ER IF symptoms worsen. Refrain from alcohol use. CALL or TEXT DR. RODRIGUEZ AT [phone] IF ANY QUESTIONS REGARDING HOSPITAL STAY. PLEASE CALL THE FLOOR AT [phone] IF ANY MEDICATION OR NURSING QUESTIONS. Diet: Regular Activity: Fall precautions Followup: Unknown,U [Primary Care Provider] - Time spent managing pt's care (in minutes): 35
[2019-08-20] MEDS ORDERED: LORazepam 2 MG/ML VIAL IV SCH (18:00)
== END 2019-08-19 07:00 | disposition home or self-care (01) ==
LOC: ER 13:59 → INTOOBSV 17:01 → ERHOLD 17:01
PROVIDERS: ADMIT Family Medicine; ATTEND Family Medicine
DX: F10.129 Alcohol abuse with intoxication, unspecified (principal); R74.8 Abnormal levels of other serum enzymes
CPT/HCPCS: 36415; 51702; 70450; 80048; 80076; 80307; 80320; 80329; 83605; 85025; 85610; 85730; 93005; 96372; 96374; 99285; G0378; J1650; J2250; J3411; J7030; J7040

== ENCOUNTER 2021-02-06 20:00 | Emergency (ER) | payer BC ==
[2021-02-06] MEDS ORDERED: NA CHLORIDE 0.9% 1,000 ML ONE ×2 (21:10→23:13)
[2021-02-06] MEDS ORDERED: THIAMINE 200 MG/2 ML INJ ONE (21:10)
[2021-02-06] MEDS ORDERED: Ringers Lactate 1,000 ML IV ONE (21:10)
[2021-02-06] MEDS ORDERED: LORazepam 2 MG/ML VIAL ONE (21:10)
[2021-02-06] MEDS ORDERED: FOLIC ACID 5 MG/ML VIAL ONE (21:12)
[2021-02-06] MEDS ORDERED: MULTIVITAMINS 10 ML VIAL (INJ) IV ONE (21:15)
[2021-02-06 21:37] LABS: Absolute Lymphocytes (CBC) 2.1 K/uL (0.7-4.9); Basophils % 0.5 % (0-1.3); Hematocrit 52.2 % (39.6-49.0); Lymphocytes % 19.3 % (15.3-44.8); MPV 7.1 fL (7.6-11.3); RBC Red Blood Cell Count 5.71 M/uL (4.33-5.43)
[2021-02-06 21:40] LABS: Protime INR 1.01
[2021-02-06 21:48] LABS: Urine Blood 2+ (Negative); Urine Glucose Negative (Negative); Urine Protein 3+ (Negative); Urine Specific Gravity >=1.030 (1.005-1.030)
[2021-02-06 22:07] LABS: ALT/SGPT 53 U/L (12-78); AST/SGOT 38 U/L (15-37); Albumin 4.3 g/dL (3.4-5.0); Alkaline Phosphatase 70 U/L (45-117); BUN Blood Urea Nitrogen 14 mg/dL (7-18); Bicarbonate 18 mmol/L (21-32); Bilirubin Direct 0.2 mg/dL (0-0.2); Bilirubin Total 0.7 mg/dL (0.2-1.0); Creatine Phosphokinase 249 U/L (39-308); Glucose Level 154 mg/dL (74-106); Potassium 3.5 mmol/L (3.5-5.1); Protein, Total 8.2 g/dL (6.4-8.2); Sodium Level 136 mmol/L (136-145); Troponin (Emerg Dept Use Only) < 0.02 ng/mL (0.0-0.045)
[2021-02-06 22:19] LABS: Urine Blood Negative (Negative); Urine Glucose Negative (Negative); Urine Protein 1+ (Negative); Urine Specific Gravity 1.025 (1.005-1.030)
[2021-02-06 22:51] LABS: Barbiturates NEGATIVE (NEGATIVE); Benzodiazepines NEGATIVE (NEGATIVE); Cocaine NEGATIVE (NEGATIVE); METHAMPHETAM NEGATIVE (NEGATIVE); Methadone NEGATIVE (NEGATIVE); Opiates NEGATIVE (NEGATIVE); Phencyclidine NEGATIVE (NEGATIVE); THC Cannibis POSITIVE (NEGATIVE)
--- NOTE | 2021-02-06 23:44 | EDPHYS ---
Physician Documentation [facility] Name: Alonzo Hernandez Age: 35 yrs Sex: Male : 1985 Arrival Date: 02/06/2021 Time: 20:02 Bed 7 Private MD: ED Physician Mikey Palacios HPI: 02/06 21:34 This 35 yrs old Unknown Male presents to ER via Wheelchair with complaints of Breathing jr8 Difficulty, Chest Pain. 21:34 This is a 35-year-old male patient with a history of alcohol and prescriptive drug jr8 abuse that presented to the emergency room with acute onset chest pain and breathing difficulty that started approximately 1 hour prior to arrival. Patient was tachycardic in triage room. Patient stated that he had stopped drinking about 5 days ago. Had gone on an approximately 1 to 2-week alcoholic binge before stopping 5 days ago. Since then he had been doing okay but had sudden onset of chest pain and shortness of breath while walking to the bathroom. Family stated that they had found him on the floor and appeared to be cyanotic.. Historical: - Allergies: 21:32 No Known Allergies; df1 - Home Meds: 21:32 None [Active]; df1 - PMHx: 21:32 None; df1 - PSHx: 21:32 bilateral ACL repair; right shoulder x 2; df1 - Immunization history:: Adult Immunizations not up to date, Client reports having NOT received the Covid vaccine. - Social history:: Smoking status: Patient reports the use of cigarette tobacco products, smokes one pack cigarettes per day. Patient uses alcohol, on a daily basis. street drugs, marijuana. ROS: 21:35 Eyes: Negative for injury, pain, redness, and discharge, ENT: Negative for injury, jr8 pain, and discharge, Neck: Negative for injury, pain, and swelling, Abdomen/GI: Negative for abdominal pain, nausea, vomiting, diarrhea, and constipation, Back: Negative for injury and pain, : Negative for injury, bleeding, discharge, and swelling, or urinary symptoms Skin: Negative for injury, rash, and discoloration, Neuro: Negative for headache, weakness, numbness, tingling, and seizure. 21:35 Cardiovascular: Positive for chest pain, palpitations. 21:35 Respiratory: Positive for cough, shortness of breath. Exam: 21:35 Constitutional: This is a well developed, well nourished patient who is awake, alert, jr8 and in no acute distress. Neck: Trachea midline, no thyromegaly or masses palpated, and no cervical lymphadenopathy. Supple, full range of motion without nuchal rigidity, or vertebral point tenderness. No Meningismus. 21:35 Respiratory: Lungs have equal breath sounds bilaterally, mild wheezing present to the anterior left and right upper lobes. No rales, rhonchi noted. No increased work of breathing, no retractions or nasal flaring. Abdomen/GI: Soft, non-tender, with normal bowel sounds. No distension or tympany. No guarding or rebound. No evidence of tenderness throughout. Back: No spinal tenderness. No costovertebral tenderness. Full range of motion. Skin: Warm, dry with normal turgor. Normal color with no rashes, no lesions, and no evidence of cellulitis. MS/ Extremity: Pulses equal, no cyanosis. Neurovascular intact. Full, normal range of motion. Neuro: Awake and alert, GCS 15, oriented to person, place, time, and situation. Cranial nerves II-XII grossly intact. Motor strength 5/5 in all extremities. Sensory grossly intact. 21:35 Cardiovascular: Rate: tachycardic, Rhythm: regular, Pulses: Pulses are 2+ in right radial artery and left radial artery. Heart sounds: normal, normal S1and S2, no S3 or S4, no murmur, no rub, no gallop, Edema: is not appreciated, JVD: is not appreciated. Vital Signs: 21:29 BP 143 / 98; Pulse 165; Resp 20; Temp 98.5; Pulse Ox 99% on R/A; Weight 90.72 kg; df1 Height 5 ft. 6 in. (167.64 cm); Pain 0/10; 21:34 BP 127 / 94; Pulse 109; Resp 10; Pulse Ox 99% on R/A; tw5 22:40 BP 136 / 99; Pulse 90; Resp 18; Pulse Ox 100% on R/A; df1 23:57 BP 125 / 95; Pulse 90; Resp 18; Temp 98.6(TE); Pulse Ox 99% on R/A; tw5 21:29 Body Mass Index 32.28 (90.72 kg, 167.64 bobby) df1 MDM: 20:37 Patient medically screened. jr8 23:36 Differential diagnosis: Myocardial Infarction pulmonary edema, Pulmonary Embolism jr8 Unstable Angina Myocarditis, endocarditis, ETOH withdrawal. Data reviewed: vital signs, nurses notes, lab test result(s), EKG. Data interpreted: Pulse oximetry: on room air is 100 %. Interpretation: normal. Counseling: I had a detailed discussion with the patient and/or guardian regarding: the historical points, exam findings, and any diagnostic results supporting the discharge/admit diagnosis, lab results, the need for outpatient follow up, a psychiatrist, to return to the emergency department if symptoms worsen or persist or if there are any questions or concerns that arise at home. ED course: Discussed with patient that he was volume contracted secondary to his constant EtOH use. Need to further rule out why he had hypoxic episode and remains to be mildly tachycardic despite aggressive fluid resuscitation. Greatest concern would be to rule out pulmonary embolism or any other cardiopulmonary pathologic process. Cannot do that without CT. Patient refuses CT at this time. Made patient aware that if he did have 1 of these processes it could end up being detrimental to him.. 02/06 21:03 Order name: Acetaminophen; Complete Time: 22:37 [facility] 02/06 21:03 Order name: Basic Metabolic Panel; Complete Time: 22:37 [facility] 02/06 21:03 Order name: CBC with Diff; Complete Time: 21:57 [facility] 02/06 21:03 Order name: ETOH Level; Complete Time: 21:57 [facility] 02/06 21:03 Order name: Hepatic Function; Complete Time: 22:37 [facility] 02/06 21:03 Order name: PT-INR; Complete Time: 21:57 [facility] 02/06 21:03 Order name: Ptt, Activated; Complete Time: 21:57 [facility] 02/06 21:03 Order name: Salicylate; Complete Time: 21:57 [facility] 02/06 21:03 Order name: Urine Drug Screen; Complete Time: 23:04 [facility] 02/06 21:03 Order name: TSH; Complete Time: 22:37 [facility] 02/06 21:03 Order name: T4 Free; Complete Time: 22:37 02/06 21:03 Order name: CPK; Complete Time: 22:37 [facility] 02/06 21:03 Order name: Troponin (emerg Dept Use Only); Complete Time: 22:37 02/06 21:48 Order name: Urine Dipstick-Ancillary; Complete Time: 21:57 EDMS 02/06 21:03 Order name: EKG; Complete Time: 21:04 02/06 21:03 Order name: EKG - Nurse/Tech; Complete Time: 21:26 02/06 21:03 Order name: IV Saline Lock; Complete Time: 21:26 02/06 21:03 Order name: Labs collected and sent; Complete Time: 21:26 02/06 21:03 Order name: Suicide Screening ([place]); Complete Time: 21:32 02/06 21:03 Order name: Urine Dipstick-Ancillary (obtain specimen); Complete Time: 22:17 02/06 22:18 Order name: Urine Dipstick-Ancillary; Complete Time: 22:37 EDMS Administered Medications: 21:25 Drug: Ativan (LORazepam) 1 mg Route: IVP; Site: right antecubital; tw5 23:58 Follow up: Response: No adverse reaction tw5 21:26 Drug: Ringers - Lactated Ringers Solution 1000 ml Route: IV; Rate: bolus; Site: right tw5 antecubital; 23:05 Follow up: IV Status: Completed infusion; IV Intake: 1000ml df1 21:32 Drug: Banana Bag - (NS 0.9% 1000 ml, foLIC Acid 1 mg, Thiamine 100 mg, Multivitamin 1 tw5 amp) Route: IV; Rate: calculated rate; Site: right antecubital; 23:58 Follow up: Response: No adverse reaction; IV Status: Completed infusion tw5 23:16 Drug: NS 0.9% 1000 ml Route: IV; Rate: 1000 ml; Site: right antecubital; df1 23:58 Follow up: Response: No adverse reaction; IV Status: Completed infusion tw5 Disposition: 02/07 00:24 Co-signature as Attending Physician, Mikey Palacios MD I agree with the assessment and kdr plan of care. Disposition Summary: 02/06/21 23:44 Discharge Ordered Location: Home jr8 Problem: new jr8 Symptoms: have improved jr8 Condition: Stable jr8 Diagnosis - Dehydration jr8 - Tachycardia, unspecified jr8 Followup: jr8 - With: Private Physician - When: 2 - 3 days - Reason: Recheck today's complaints, Continuance of care, Re-evaluation by your physician Discharge Instructions: - Discharge Summary Sheet jr8 - Alcohol Withdrawal Syndrome jr8 - Dehydration, Adult jr8 - Sinus Tachycardia jr8 Forms: - Medication Reconciliation Form jr8 - Thank You Letter jr8 - Antibiotic Education jr8 - Prescription Opioid Use jr8 Signatures: Dispatcher [employer] EDMS Mikey Palacios MD MD kdr Abram Frey PA PA jr8 Lexy Enriquez df1 Ximena Tomlinson tw5 Corrections: (The following items were deleted from the chart) 02/06 21:33 21:32 Allergies: Unable to obtain; df1 df1 23:42 23:05 Chest For PE Angio+CT.RAD.BRZ ordered. EDKY EDMS
--- NOTE | 2021-02-06 23:44 | ER ---
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 Pt is daily drinker for 5 years approx 3 bottles of wine or up to 1 24pk of beer per day. Father states pt has not drank in past 5 days. Coronavirus screen: Vaccine status: Patient reports being unvaccinated. Client denies travel out of the [place] in the last 14 days. At this time, the client does not indicate any symptoms associated with coronavirus-19. Ebola Screen: Patient negative for fever greater than or equal to 101.5 degrees Fahrenheit, and additional compatible Ebola Virus Disease symptoms Patient denies exposure to infectious person. Patient denies travel to an Ebola-affected area in the 21 days before illness onset. Initial Sepsis Screen: Does the patient meet any 2 criteria? No. Patient's initial sepsis screen is negative. Does the patient have a suspected source of infection? No. Patient's initial sepsis screen is negative. Risk Assessment: Do you want to hurt yourself or someone else? Patient reports no desire to harm self or others. Onset of symptoms was February 06, 2021. 21:29 Method Of Arrival: Wheelchair df1 21:29 Acuity: NAYLA 2 df1 Triage Assessment: 21:32 General: Appears uncomfortable, unkempt, Behavior is cooperative, anxious. Respiratory: df1 Reports shortness of breath at rest Onset: The symptoms/episode began/occurred suddenly, the patient has mild shortness of breath. Historical: - Allergies: 21:32 No Known Allergies; df1 - Home Meds: 21:32 None [Active]; df1 - PMHx: 21:32 None; df1 - PSHx: 21:32 bilateral ACL repair; right shoulder x 2; df1 - Immunization history:: Adult Immunizations not up to date, Client reports having NOT received the Covid vaccine. - Social history:: Smoking status: Patient reports the use of cigarette tobacco products, smokes one pack cigarettes per day. Patient uses alcohol, on a daily basis. street drugs, marijuana. Screenin:29 Abuse screen: Denies threats or abuse. Denies injuries from another. Nutritional tw5 screening: No deficits noted. Tuberculosis screening: No symptoms or risk factors identified. Fall Risk Fall in past 12 months (25 points). Secondary diagnosis (15 points) IV access (20 points). Assessment: 21:29 General: Appears unkempt, Behavior is agitated, anxious. General: Reports " I did have tw5 some chest pain earlier, but that has gone away". Pain: Denies pain. Pain:. Cardiovascular: Reports None Rhythm is PAT. Respiratory: Airway is patent Trachea midline Respiratory effort is even, unlabored, Breath sounds are clear bilaterally. 23:57 Reassessment: Patient states feeling better. Patient states symptoms have improved. tw5 Psych: 21:33 [place] Suicide Severity Screening: In the past month, have you wished you were tw5 or wished you could go to sleep and not wake up? Patient responds "No." "In the past month, have you actually had any thoughts of killing yourself?" Patient responds "no." "In your lifetime, have you ever done anything, started to do anything, or prepared to do anything to end your life?" Patient responds "no.". Subjective: Patient's mood is. Objective: Patient is restless. Interventions: Patient placed in hospital gown. Safety Checks: Patient uses 2 or 3 bottles of wine, or 12-24 beers. of beer, of wine. Vital Signs: 21:29 BP 143 / 98; Pulse 165; Resp 20; Temp 98.5; Pulse Ox 99% on R/A; Weight 90.72 kg; df1 Height 5 ft. 6 in. (167.64 cm); Pain 0/10; 21:34 BP 127 / 94; Pulse 109; Resp 10; Pulse Ox 99% on R/A; tw5 22:40 BP 136 / 99; Pulse 90; Resp 18; Pulse Ox 100% on R/A; df1 23:57 BP 125 / 95; Pulse 90; Resp 18; Temp 98.6(TE); Pulse Ox 99% on R/A; tw5 21:29 Body Mass Index 32.28 (90.72 kg, 167.64 cm) df1 ED Course: 20:02 Patient arrived in ED. wm 20:28 Ximena Tomlinson is Primary Nurse. tw5 20:32 Abram Frey PA is PHCP. jr8 20:32 Mikey Palacios MD is Attending Physician. jr8 21:29 No provider procedures requiring assistance completed. Inserted saline lock: 18 gauge df1 in right antecubital area, using aseptic technique. 21:29 Patient has correct armband on for positive identification. Placed in gown. Bed in low tw5 position. Call light in reach. Side rails up X 1. Adult w/ patient. threat monitoring analyst on. Pulse ox on. NIBP on. Door closed. Noise minimized. Lights dimmed. Moved to private room. Warm blanket given. Verbal reassurance given. 21:32 Triage completed. df1 21:32 Acetaminophen Sent. tw5 21:32 Basic Metabolic Panel Sent. tw5 21:32 Ptt, Activated Sent. tw5 21:32 PT-INR Sent. tw5 21:32 Hepatic Function Sent. tw5 21:32 ETOH Level Sent. tw5 21:32 CBC with Diff Sent. tw5 21:32 Salicylate Sent. tw5 21:32 TSH Sent. tw5 21:32 CPK Sent. tw5 21:32 T4 Free Sent. tw5 21:32 Troponin (emerg Dept Use Only) Sent. tw5 23:57 IV discontinued, intact, bleeding controlled, No redness/swelling at site. Pressure tw5 dressing applied. 23:58 Arm band placed on left wrist. tw5 Administered Medications: 21:25 Drug: Ativan (LORazepam) 1 mg Route: IVP; Site: right antecubital; tw5 23:58 Follow up: Response: No adverse reaction tw5 21:26 Drug: Ringers - Lactated Ringers Solution 1000 ml Route: IV; Rate: bolus; Site: right tw5 antecubital; 23:05 Follow up: IV Status: Completed infusion; IV Intake: 1000ml df1 21:32 Drug: Banana Bag - (NS 0.9% 1000 ml, foLIC Acid 1 mg, Thiamine 100 mg, Multivitamin 1 tw5 amp) Route: IV; Rate: calculated rate; Site: right antecubital; 23:58 Follow up: Response: No adverse reaction; IV Status: Completed infusion tw5 23:16 Drug: NS 0.9% 1000 ml Route: IV; Rate: 1000 ml; Site: right antecubital; df1 23:58 Follow up: Response: No adverse reaction; IV Status: Completed infusion tw5 Intake: 23:05 IV: 1000ml; Total: 1000ml. df1 Outcome: 23:44 Discharge ordered by MD. salazar 23:57 Discharged to home ambulatory. tw5 23:57 Condition: good 23:57 Discharge instructions given to patient, Instructed on discharge instructions, follow up and referral plans. 23:59 Patient left the ED. tw5 Signatures: Abram Frey PA PA jrKaye Ballesteros Dawn df1 Ximena Tomlinson tw5 Corrections: (The following items were deleted from the chart) 21:33 21:32 Allergies: Unable to obtain; df1 df1
[2021-02-07 00:18] VITALS: BP 125/95; TEMP 98.6; O2SAT 99
== END 2021-02-06 23:59 | disposition home or self-care (01) ==
LOC: ER 20:00
DX: E86.0 Dehydration (principal); R00.0 Tachycardia, unspecified; F17.210 Nicotine dependence, cigarettes, uncomplicated
CPT/HCPCS: 96365; 93005; 85025; 80048; 36415; 80320; 82550; 80329 ×2; 85610; 80076; 85730; 84443; 81003 ×2; 84484; 84439; 80307; 96375; 99284; 96366; J3411; J7120; J7030 ×2